=== PATIENT | female | born 1950 | race Hispanic/Latino ===

== ENCOUNTER 2017-02-19 11:10 | Outpatient (CLI) | payer OTHER, MEDICARE ==
--- NOTE | 2017-02-19 14:54 | Mammography Report ---
BILATERAL DIGITAL SCREENING MAMMOGRAM with CAD: 02/19/17 CLINICAL: Routine screening. COMPARISON:01/19/14 FINDINGS: The breasts are almost entirely fatty. No mass, architectural distortion or suspicious calcifications. IMPRESSION: No mammographic evidence of malignancy. BI-RADS CATEGORY: 1 - - Negative RECOMMENDATION: Routine mammographic screening in one year. COMMENT: Patient follow-up letters are generated by our [employer] application.
== END 2017-02-19 11:11 | disposition home or self-care (01) ==
LOC: MAMMO 11:10
PROVIDERS: ATTEND Family Medicine
DX: Z12.31 Encounter for screening mammogram for malignant neoplasm of breast (principal)
CPT/HCPCS: 77067

== ENCOUNTER 2019-12-14 07:02 | Day surgery (SDC) | payer MEDICARE, OTHER ==
[2019-12-11 13:54] LABS: Hematocrit 36.5 % (30.3-42.9); Hemoglobin 12.5 gm/dl (10.1-14.3); Mean Corpuscular HGB Conc 34 % (30-34); Mean Corpuscular Volume 95 fl (79-97); Platelet Count 161 K/mm3 (140-440); Red Blood Count 3.85 M/mm3 (3.65-5.03); Red Cell Distribution Width 14.7 % (13.2-15.2)
[2019-12-11 14:17] LABS: Alanine Aminotransferase 12 units/L (7-56); Albumin 4.3 g/dL (3.9-5); BUN/Creatinine Ratio 20; Blood Urea Nitrogen 16 mg/dL (7-17); Calcium 9.7 mg/dL (8.4-10.2); Hemolysis Index 6
[~2019-12-14 07:02] MED LIST: ACETAMINOPHEN 500 MG TAB PO SCH; LACTATED RINGERS 1,000 ML IV SCH; VANCOMYCIN/NS 1 GM/250 ML 1 GM/250 ML BAG IV SCH
[2019-12-14] MEDS ORDERED: VANCOMYCIN 1,750 MG in SODIUM CHLORIDE 0.9% 500 ML 500 ML IV SCH (08:00)
--- NOTE | 2019-12-14 08:10 | Anesthesia Consultation ---
Anesthesia Consult and Med Hx Date of service: 12/14/19 - Airway Anesthetic Teeth Evaluation: Poor ROM Head & Neck: Adequate Mental/Hyoid Distance: Adequate Mallampati Class: Class III Intubation Access Assessment: Possibly Difficult (previous easy with glidescope) - Pulmonary Exam CTA: Yes - Cardiac Exam Cardiac Exam: RRR - Pre-Operative Health Status ASA Pre-Surgery Classification: ASA3 Proposed Anesthetic Plan: General - Pulmonary Hx Smoking: No Hx Respiratory Symptoms: No Hx Sleep Apnea: Yes (compliant with CPAP) - Cardiovascular System Hx Hypertension: Yes (took losartan this morning; hx LE lymphedema) Hx Heart Attack/AMI: No Hx Percutaneous Transluminal Coronary Angioplasty (PTCA): No Hx Cardia Arrhythmia: No - Central Nervous System CVA: No Hx Back Pain: Yes - Gastrointestinal Hx Gastroesophageal Reflux Disease: No - Endocrine Hx Renal Disease: No Hx Liver Disease: No Hx Insulin Dependent Diabetes: No Hx Non-Insulin Dependent Diabetes: No Hx Hypothyroidism: Yes (took synthroid this morning) - Other Systems Hx Obesity: Yes (BMI 42) - Additional Comments Anesthesia Medical History Comments: No hx anesthetic complications.
--- NOTE | 2019-12-14 08:10 | Anesthesia Day of Surgery ---
Anesthesia Day of Surgery - Day of Surgery Patient Examined: Yes Patient H&P Reviewed: Yes Patient is NPO: Yes
[2019-12-14] MEDS ORDERED: fentaNYL 100 MCG/2 ML INJ IV PRN (08:30)
[2019-12-14] MEDS ORDERED: NEOMY 40 MG/POLYMYXIN B 200,000 UNITS/ML (GU) AMPULE IR ONE (09:13)
[2019-12-14] MEDS ORDERED: LIDOCAINE (2%) 20 MG/1 ML VIAL 20 ML MDV INFILTRATI ONE (09:13)
[2019-12-14] MEDS ORDERED: HYDROmorphone 1 MG/1 ML INJ ONE (09:14)
[2019-12-14] MEDS ORDERED: propofoL 200 MG/20 ML VIAL IV ONE (09:15)
[2019-12-14] MEDS ORDERED: SUCCINYLCHOLINE CHLORIDE 200 MG/10 ML INJ MDV ONE (09:18)
[2019-12-14] MEDS ORDERED: LIDOCAINE MPF (2%) 20 MG/1 ML VIAL 5 ML ONE (09:18)
[2019-12-14] MEDS ORDERED: SODIUM CHLORIDE 0.9% IRR 1,500 ML BOTTLE IR ONE (10:30)
[2019-12-14] MEDS ORDERED: ONDANSETRON 4 MG/2 ML INJ ONE (10:33)
--- NOTE | 2019-12-14 10:43 | Short Stay Summary ---
Short Stay Documentation Date of service: 12/14/19 - History H&P: obtained from office - Allergies and Medications Current Medications: Allergies shellfish derived Allergy (Severe, Verified 12/11/19 14:55) Swelling / RASH Iodinated Contrast Media Allergy (Verified 12/11/19 14:55) Vomiting Home Medications Medication Instructions Recorded Confirmed Last Taken Type Levothyroxine Sodium 137 mcg PO QAM 10/15/12 12/11/19 12/14/19 06:00 History [Levothyroxine] allopurinoL [Zyloprim] 300 mg PO QDAY 10/15/12 12/11/19 12/13/19 History Furosemide [Lasix] 20 mg PO QDAY 12/11/19 12/11/19 12/13/19 History Losartan [Cozaar] 50 mg PO QDAY 12/11/19 12/11/19 12/14/19 06:00 History Potassium Citrate [Potassium 20 meq PO DAILY 12/11/19 12/11/19 12/13/19 History Citrate ER] Active Medications Acetaminophen (Tylenol) 1,000 mg PO PREOP NICHOLAS Stop: 12/14/19 23:01 Last Admin: 12/14/19 08:10 Dose: 1,000 mg Documented by: Fentanyl (Sublimaze) 50 mcg IV Q5MIN PRN PRN Reason: Pain , Severe (7-10) Stop: 12/14/19 16:00 Lactated Ringer's (Lactated Ringers) 1,000 mls @ 100 mls/hr IV DIRECT NICHOLAS Stop: 12/14/19 23:59 Vancomycin HCl 1,750 mg/ (Sodium Chloride) 535 mls @ 333.333 mls/hr IV PREOP NICHOLAS Stop: 12/14/19 21:00 Last Admin: 12/14/19 09:14 Dose: 333.333 mls/hr Documented by: - Brief post op/procedure progress note Date of procedure: 12/14/19 Pre-op diagnosis: non function interstim Post-op diagnosis: same Procedure: revision interstim--replace battery (IPG) Anesthesia: STEVEA Surgeon: DELVIN PAYNE Pathology: list (OLD BATTERY) Specimen disposition: to lab Condition: stable - Hospital course Hospital course: BACTRIM & JOSE ON CHART - Disposition Condition at discharge: Stable Disposition: - TO HOME OR SELFCARE Short Stay Discharge Plan Follow up with: ZENY SCHMIDT MD [Primary Care Provider] - 7 Days
[2019-12-14] MEDS ORDERED: ONDANSETRON 4 MG/2 ML INJ IV PRN (11:00)
--- NOTE | 2019-12-14 11:07 | XRay Report ---
SACRUM AND COCCYX 2 VIEWS INDICATION: REVISION OF STIMULATOR. COMPARISON: None. IMPRESSION: 0.1 minutes of fluoroscopy time was provided by radiology during revision of a neurostim ulator by the surgeon. 2 fluoroscopic images of the pelvis are presented demonstrating stimulator pl acement. No acute osseous abnormality is detected. Please correlate with the procedural report. Signer Name: Jonny Delong Jr, MD Signed: 12/14/2019 11:02 AM Workstation Name: [id number]
--- NOTE | 2019-12-14 11:25 | Operative Report ---
PREOPERATIVE DIAGNOSIS: Malfunctioning InterStim. POSTOPERATIVE DIAGNOSIS: Malfunctioning InterStim (malfunctioning IPG/battery). PROCEDURE: Revision of InterStim (replace implantable pulse generator -- battery) right side. SURGEON: Edenilson Young MD ANESTHESIA: General. ESTIMATED BLOOD LOSS: Minimal. FLUIDS: Crystalloid. COMPLICATIONS: No complications. INDICATIONS: This is a 69-year-old female with a history of urge incontinence, refractory to medication, had a previous InterStim placed in 2015. She has done well periodically, however, worsening symptoms with her diuretic, but now states it is not working at all. Exam was consistent with nonfunctioning battery. She presents now for replacement of battery possible revision right side. Risks, benefits, and complications were explained. DESCRIPTION OF PROCEDURE: The patient was taken to the operative suite, placed in a supine position. After adequate general anesthesia, she was then placed in a prone position. Her lower back was prepped and draped in a sterile fashion. The buttocks was taped laterally to expose the anus. With the aid of C-arm fluoroscopy, the battery and implant in the quadripolar lead could be appreciated in good position using AP and lateral positions. Skin incision was made over the battery. Sharp dissection was taken down to expose the battery. Anaerobic and aerobic cultures were taken. Old battery was removed. No signs of infection could be appreciated. Intraoperative interrogation of the existing quadripolar lead revealed excellent response at all four wires. New battery was then secured and placed in the same pocket. Impedance testing revealed all four wires to be intact and working. Subcutaneous tissue was closed with 2-0 Vicryl in a running fashion. Skin was closed with 3-0 Vicryl in interrupted fashion. The patient tolerated the procedure well. She was extubated and taken to recovery room. She will go home on Bactrim and [place] and follow up in the office. She is to also start biofeedback in conjunction with InterStim. JOB# [id number] [facility]
[2019-12-14 11:55] VITALS: BP 117/50
[2019-12-14] MEDS ORDERED: ONDANSETRON 4 MG/2 ML INJ IV ONE (12:00)
--- NOTE | 2019-12-14 12:26 | Post Anesthesia Evaluation ---
- Post Anesthesia Evaluation Patient Participated: Yes Airway Patent: Yes Stable Respiratory Function: Yes Nausea/Vomiting: No Temp > 96.8F: Yes Pain Manageable: Yes Adequeate Hydration: Yes Anesthesia Complications: No
== END 2019-12-14 12:20 | disposition home or self-care (01) ==
LOC: OR 07:02
PROVIDERS: ATTEND Urology
DX: T83.190A Other mechanical complication of urinary electronic stimulator device, initial encounter (principal); Z20.828 Contact with and (suspected) exposure to other viral communicable diseases; E66.01 Morbid (severe) obesity due to excess calories; K29.60 Other gastritis without bleeding; I10 Essential (primary) hypertension; G47.30 Sleep apnea, unspecified; M19.90 Unspecified osteoarthritis, unspecified site; E03.9 Hypothyroidism, unspecified; F32.9 Major depressive disorder, single episode, unspecified; F41.9 Anxiety disorder, unspecified; N39.46 Mixed incontinence; Z91.013 Allergy to seafood; Z91.041 Radiographic dye allergy status; Z79.899 Other long term (current) drug therapy; Z98.41 Cataract extraction status, right eye; Z98.42 Cataract extraction status, left eye; Z68.41 Body mass index [BMI] 40.0-44.9, adult; Z90.49 Acquired absence of other specified parts of digestive tract; Z98.890 Other specified postprocedural states; Y82.8 Other medical devices associated with adverse incidents; Y92.89 Other specified places as the place of occurrence of the external cause
CPT/HCPCS: 36415; 64595; 72220; 80053; 85027; 87075; 87116; 88300; C1767; J0330; J1170; J2405; J2704; J3370; J7040; J7120; U0003

== ENCOUNTER 2019-12-29 09:51 | Outpatient (CLI) | payer MEDICARE ==
--- NOTE | 2019-12-29 17:43 | Mammography Report ---
DIGITAL SCREENING MAMMOGRAM WITH CAD, 12/29/2019 INDICATION: Routine screening mammography. TECHNIQUE: Digital bilateral 2D mammography was obtained in the craniocaudal and mediolateral obliq ue projections. This examination was interpreted with the benefit of Computer-Aided Detection analysi s. COMPARISON: 02/19/2017, 01/19/2014 FINDINGS: Breast Density: The breasts are almost entirely fatty. There is no evidence of dominant mass, suspicious calcifications or architectural distortion in eithe r breast. Few coarse calcifications in the left breast are unchanged. IMPRESSION: Follow up recommendation: Routine yearly BI-RADS Category 2: Benign. A "normal" or negative report should not discourage follow up or biopsy of a clinically significant f inding. A written summary of these findings will be mailed to the patient. The patient will be entered into a mammography reporting system which will generate a reminder letter for the patient's next appointmen t at the appropriate interval. The [employer] recommends yearly mammograms starting at age 40 and continuing as l amanda as a woman is in good health. Breast MRI is recommended for women with an approximate 20-25% or greater lifetime risk of breast cancer, including women with a strong family history of breast or ova pebbles cancer or who have been treated for Hodgkin's disease. Signer Name: Rosario Rossi MD Signed: 12/29/2019 5:42 PM Workstation Name: [email or web address]
== END 2019-12-29 09:52 | disposition home or self-care (01) ==
LOC: MAMMO 09:51
PROVIDERS: ATTEND Family Medicine
DX: Z12.31 Encounter for screening mammogram for malignant neoplasm of breast (principal)
CPT/HCPCS: 77067

== ENCOUNTER 2020-01-25 13:49 | Outpatient (CLI) | payer MEDICARE ==
--- NOTE | 2020-01-25 15:39 | Mammography Report ---
DEXA BONE DENSITY SCAN INDICATION / CLINICAL INFORMATION: SCREENING MAMMO. 69 years Female COMPARISON: None available. LUMBAR SPINE (L1-L4): - Bone mineral density (BMD) = 1.078 g/cm2. - T-score = 0.3 - Z-score = 2.4 Change (%) since most recent prior (if available): None available. FEMORAL NECKS: - Left femoral neck Bone mineral density (BMD) = 0.848 g/cm2. - T-score = -0.8 - Z-score = 0.8 Change (%) since most recent prior (if available): None available. IMPRESSION: 1. WHO Classification: Normal bone density. Fracture Risk: Not Increased. BMD Reporting Guidelines (ISCD, 2015) BMD Reporting in Postmenopausal Women and in Men Age 50 and Older * T-scores are preferred. * The WHO densitometric classification is applicable. BMD Reporting in Females Prior to Menopause and in Males Younger Than Age 50 * Z-scores, not T-scores, are preferred. This is particularly important in children. * A Z-score of -2.0 or lower is defined as below the expected range for age, and a Z-score above -2. 0 is within the expected range for age. * Osteoporosis cannot be diagnosed in men under age 50 on the basis of BMD alone. * The WHO diagnostic criteria may be applied to women in the menopausal transition. http://www.iscd.org/official-positions/2523-dyrz-unhgsser-positions-adult/ Signer Name: Kory Crow MD Signed: 01/25/2020 3:34 PM Workstation Name: [id number]
== END 2020-01-25 13:50 | disposition home or self-care (01) ==
LOC: MAMMO 13:49
PROVIDERS: ATTEND Family Medicine
DX: Z13.820 Encounter for screening for osteoporosis (principal); Z78.0 Asymptomatic menopausal state
CPT/HCPCS: 77080